=== PATIENT | male | born 1950 | race Caucasian/White ===

== ENCOUNTER → 2018-02-16 | Outpatient (REF) | payer MEDICARE, OTHER ==
[~2018-02-16] MED LIST: ASPI81TA94 PO; GLUC-198 PO; MULT1TAB54 PO
[2018-02-16 17:37] LABS: PLATELET COUNT, AUTOMATED 274 K/uL (150-450)
== END ==
LOC: ZZSTITCHES 17:29
PROVIDERS: ATTEND Physician Assistant
DX: R42 Dizziness and giddiness (principal); R51 Headache
CPT/HCPCS: 82040; 82247; 82310; 82374; 82435; 82565; 82947; 84075; 84132; 84155; 84295; 84443; 84450; 84460; 84520; 85025